=== PATIENT | male | born 1995 | race Caucasian/White ===

== ENCOUNTER 2019-01-06 16:46 | Emergency (ER) | payer OTHER ==
[~2019-01-06] VITALS: Ht 162.6 cm; Wt 68.4 kg
[2019-01-06 16:56] VITALS: BP 146/88; PULSE 72; RESP 18; Ht 162.6 cm; Wt 68.4 kg
--- NOTE | 2019-01-06 17:17 | ERD ---
ER Documentation Chief Complaint Chief Complaint FEELING ANXIUOS X FEW DAYS , DENIES SI/HI HPI 23-year-old male, with history of anxiety, presents to the emergency, complaining of 1 month with painless bald spots on the scalp. No history of trauma, the patient denies itching, erythema or similar lesions and any other parts of the body. In regards of his anxiety, the patient denies suicidal ideation, homicidal ideation, no reports of visual or auditory hallucinations. ROS All systems reviewed and are negative except as per history of present illness. Medications Home Meds Active Scripts Triamcinolone Acetonide (Triamcinolone Acetonide) 0.1% - 60 Ml Lotion, 1 APPLIC TOP TID for 7 Days, #1 BOTTLE Prov:ATYLOR ALBERT MD 01/06/19 Lorazepam* (Ativan*) 0.5 Mg Tablet, 0.5 MG PO QHS PRN for ANXIETY, #10 TAB Prov:TAYLOR ALBERT MD 01/06/19 FmHx Family History: diabetes, coronary disease Physical Exam Vitals Vital Signs Date Temp Pulse Resp B/P (MAP) Pulse Ox O2 O2 Flow FiO2 Time Delivery Rate 01/06/19 98.1 72 18 146/88 99 16:56 (107) Physical Exam Const: No acute distress Head: 2 cm well-demarcated area of alopecia in the parietal area. Eyes: Normal Conjunctiva ENT: Normal External Ears, Nose and Mouth. Neck: Full range of motion. No meningismus. Resp: Clear to auscultation bilaterally Cardio: Regular rate and rhythm, no murmurs Abd: Soft, non tender, non distended. Normal bowel sounds Skin: No petechiae or rashes Back: No midline or flank tenderness Ext: No cyanosis, or edema Neur: Awake and alert Psych: Normal Mood and Affect Procedures/MDM Vital signs stable, Physical exam unremarkable, neurovascular exam intact. Differential diagnosis include but not limited to: Depression, anxiety, migraine, in regards of the scalp lesions the differential includes tinea, traumatic alopecia, autoimmune etiology. Physical examination and clinical presentation consistent most likely with anxiety and alopecia areata. During the ED course the patient remained stable, no new complaints. Results and clinical impression discussed with patient who agrees with management. The patient is stable to be treated outpatient and will be discharged home with a Rx for lorazepam and triamcinolone, some side effects of prescribed medications (headache, rash, nausea, vomiting, diarrhea, drowsiness, habituation, bleeding, hypertension, interactions with other medications) were reviewed. The patient was instructed to follow up with the primary care provider in the next 48h. If symptoms persist, worsen or new symptoms develop, then patient should return to the ED immediately. Instructions explained and given directly by me to the patient with acknowledgment and demonstrated understanding. Disclaimer: Inadvertent spelling and grammatical errors are likely due to EHR/dictation software use and do not reflect on the overall quality of patient care. Also, please note that the electronic time recorded on this note does not necessarily reflect the actual time of the patient encounter. Departure Diagnosis: Primary Impression: Alopecia areata Additional Impression: Anxiety Condition: Stable Additional Instructions: Thank you very much for allowing us to participate in your care. Your health and safety is our top priority at [facility]. The evaluation in the emergency department has been done to rule out an acute emergency. Chronic, [id number] conditions may have not been evaluated; therefore, you need to follow up with a primary care provider in the next 48h. If symptoms persist, worsen or new symptoms develop, then patient should return to the ED immediately. Call your primary care doctor TOMORROW for an appointment during the next 2-4 days and bring all the information provided. Have prescriptions filled and follow precisely the directions on the label. If the symptoms get worse and your provider is unavailable, return to the Emergency Department immediately. TAYLOR ALBERT MD Jan 06, 2019 17:17
[2019-01-06] MEDS ORDERED: LORA-441 PO (17:20)
[2019-01-06] MEDS ORDERED: TR1B60 TOP (17:20)
== END 2019-01-07 17:21 | disposition home or self-care (01) ==
LOC: E/R 16:46
DX: L63.9 Alopecia areata, unspecified (principal); F41.9 Anxiety disorder, unspecified
CPT/HCPCS: 99283